=== PATIENT | female | born 1935 | race Caucasian/White ===

== ENCOUNTER 2016-08-28 18:06 | Emergency (ER) | payer MEDICARE, BC ==
--- NOTE | ~2016-08-28 | CR72 ---
[facility]. [facility] A Service of [facility] & [facility] RADIOLOGY TEXT RESULTS PATIENT: DESMOND MALDONADO LOCATION: SED : 37 UNIT #: [id number] AGE: [address]: Nicolas Triana MD SEX: F ORDER DR: [id number] [address] [address] [id number] E MR#: [id number] Acc #: [id number] NAME: DESMOND MALDONADO. : 1935 SEX: F STUDY DATE/TIME: 08/28/2016 18:17 UNIT: SED ROOM: STUDY DESCRIPTION: CR Chest Single View Portable Attending Physician: Nicolas Triana M.D. Ordering Physician: Song Mora M.D. Primary Care Physician: Brad Simmons M.D. MEDICAL IMAGING REPORT This report is preliminary unless electronic signature is present. EXAM Portable chest, 08/28/2016. HISTORY Chest pain for 2 hours today, coronary artery disease. FINDINGS A single AP portable view of the chest shows both lungs to be clear. The heart is normal in size. The mediastinal contour is normal. No significant bone abnormalities are seen. IMPRESSION Normal portable chest. Dictated by... Arnie Forde M.D. THIS IS AN ELECTRONICALLY VERIFIED REPORT Arnie Forde M.D. at 08/29/2016 2:15 PM DAYSI/jo TD: 08/29/2016 02:53 JOB #: [id number] MEDICAL IMAGING REPORT Page 1 of 1
--- NOTE | ~2016-08-28 | EKG ---
PATIENT: DESMOND MALDONADO UNIT #: [id number] Ventricular Rate: 73 BPM Atrial Rate: 73 BPM P-R Interval: 204 ms QRS Duration: 92 ms Q-T Interval: 400 ms QTC Calculation(Bezet): 440 ms P [place]: 61 degrees Calculated R [place]: 9 degrees Calculated T [place]: 49 degrees Diagnosis Line: Normal sinus rhythm Diagnosis Line: Possible Left atrial enlargement Diagnosis Line: Low voltage QRS Diagnosis Line: Cannot rule out Inferior infarct (cited on or Diagnosis Line: before 10-AUG-2015) Diagnosis Line: Abnormal ECG Diagnosis Line: When compared with ECG of 10-AUG-2015 17:38, Diagnosis Line: Nonspecific T wave abnormality no longer evident Diagnosis Line: in Anterolateral leads Diagnosis Line: Confirmed by MIKE MARTINEZ MD ([id number]) on Diagnosis Line: 08/30/2016 11:03:55 AM INTERPRETING MD: MICHELLE ARCE
[~2016-08-28 18:06] MED LIST: ASPIRIN81 M2 PO; BIAXIN PO; FLONASE 0.05% N16 G1
[2016-08-28] MEDS ORDERED: B/P MED (18:18)
[2016-08-28 18:25] LABS: BASOPHIL% 0.4 % (0-2.5); EOSINOPHIL# 0.1 X10e3 (0-0.7); HEMATOCRIT 36.9 % (35.0-45.0); HEMOGLOBIN 12.3 gm/dL (12.0-16.0); LYMPHOCYTE# 2.8 X10e3 (1.0-3.5); MEAN CELL VOLUME 94.3 FL (83-96); MEAN CORPUSCULAR HEMOGLOBIN 31.3 PG (28-34); MEAN CORPUSCULAR HGB CONC 33.2 g/dL (30-36); MEAN PLATELET VOLUME 8.7 FL (6.5-11.5); MONOCYTE# 0.6 X10e3 (0-1.0); MONOCYTE% 8.6 % (3.0-12.0); NEUTROPHIL# 3.9 X10e3 (1.5-7.1); PLATELET COUNT 164 X10e3 (140-420); RED BLOOD COUNT 3.91 X10e (3.90-5.30); RED CELL DISTRIBUTION WIDTH 13.9 % (11.0-15.5); WHITE BLOOD COUNT 7.5 X10e3 (4.0-10.5)
[2016-08-28 18:26] LABS: DIFF IND NO
[2016-08-28 18:36] LABS: PROTHROMBIN TIME (PATIENT) 11.8 SECONDS (9.5-12.4)
[2016-08-28 18:42] LABS: ALBUMIN SERUM 3.8 g/dL (3.5-5.0); BILIRUBIN, DIRECT 0.1 mg/dL (0.0-0.2); BILIRUBIN,INDIRECT 0.4 mg/dL (0.0-0.9); BILIRUBIN,TOTAL 0.5 mg/dL (0.2-2.0); BUN/CREATININE RATIO 22.5; CALCIUM SERUM 8.6 mg/dL (8.4-10.2); CREATININE SERUM 0.8 mg/dL (0.6-1.4); GLOM FILT RATE Estimated 69.7 mL/min (>60); POTASSIUM 3.7 mmol/L (3.5-5.1)
[2016-08-28 18:43] LABS: PARTIAL THROMBOPLASTIN TIME 24.8 SECONDS (25.6-38.1)
[2016-08-28 20:13] LABS: POC - CKMB <1.0 ng/mL (0.0-7.9)
[2016-08-28 20:14] LABS: POC - TROPONIN <0.05 ng/mL (<=0.05)
[2016-08-30 19:04] LABS: POC - TROPONIN <0.05 ng/mL (<=0.05)
== END 2016-08-28 20:42 | disposition home or self-care (01) ==
LOC: SED 18:06
PROVIDERS: Emergency Medicine
DX: R07.89 Other chest pain (principal); I10 Essential (primary) hypertension; Z86.73 Personal history of transient ischemic attack (TIA), and cerebral infarction without residual deficits; Z90.710 Acquired absence of both cervix and uterus; Z79.82 Long term (current) use of aspirin
CPT/HCPCS: 36415; 71010; 80048; 80076; 82553; 84484; 85025; 85610; 85730; 93005; 99285